=== PATIENT | female | born 1965 | race African-American/Black ===

== ENCOUNTER 2022-11-27 16:58 | Emergency (ER) | payer OTHER ==
[~2022-11-27] VITALS: Ht 167.6 cm; Wt 79.4 kg
[2022-11-27] MEDS ORDERED: HYDR-4209 PO (21:37)
[2022-11-27] MEDS ORDERED: IBUP-1958 PO (21:37)
[2022-11-27 21:45] VITALS: BP 136/98; O2SAT 100
== END 2022-11-27 21:45 | disposition home or self-care (01) ==
LOC: ER 17:05
DX: M25.562 Pain in left knee (principal); Z88.0 Allergy status to penicillin
CPT/HCPCS: A4663